=== PATIENT | female | born 1980 | race Caucasian/White ===

== ENCOUNTER 2022-01-31 15:28 | Emergency (ER) | payer MEDICAID ==
[~2022-01-31] VITALS: Ht 167.6 cm; Wt 78.1 kg
[2022-01-31 15:31] VITALS: BP 131/65
--- NOTE | 2022-01-31 15:45 | NUR ---
41 Y/O FEMALE BIB SELF DUE TO PELVIC PAIN X YESTERDAY/ TODD X7 DAYS. PT STATES SHE SUFFERS FROM MIGRAINES. PER PATIENT "SHE FEELS LIKE HER PERIOD HAS LASTED LONGER THAN USUAL." PT ALSO HAS C/O PAINFUL INTERCOURSE. PT IS EXPERINCING VAGINAL DISCHARGE XYESTERDAY. DENIES ANY DYSURIA. PT DENIES CHEST PAIN, SOB. PT DENIES FEVER OR CHILLS. VSS. LUNGS CTA. BED LOCKED IN LOWEST POSITION. BED RAILX1. PMH: MIGRANES NKA
[2022-01-31] MEDS ORDERED: METOCLOPRAMIDE 10 MG/2 ML INJ VIAL IM ONE (16:30)
[2022-01-31 16:50] LABS: APPEARANCE,URINE CLEAR (CLEAR); BILIRUBIN,URINE NEGATIVE (NEGATIVE); BLOOD, URINE NEGATIVE (NEGATIVE); COLOR,URINE YELLOW (YELLOW); LEUKOCYTE ESTERASE ,URINE NEGATIVE (NEGATIVE); NITRITE, URINE NEGATIVE (NEGATIVE); PH,URINE 5.5 (5.0-9.0); UGLUCOSE NEGATIVE (NEGATIVE)
--- NOTE | 2022-01-31 17:22 | NUR ---
AT PT BEDSIDE PERFORMING PELVIC EXAM
--- NOTE | 2022-01-31 17:26 | NUR ---
QUANG CASTILLO HANDED TO LAB AT PT BEDSIDE
--- NOTE | 2022-01-31 17:48 | NUR ---
Patient appears to be resting comfortably in bed. Vital Signs within normal limits. Respirations even and unlabored.
--- NOTE | 2022-01-31 19:30 | NUR ---
Pt report given to GENEVIEVE ASHFORD. Transfer of care at this time.
--- NOTE | 2022-01-31 20:10 | NUR ---
pt laying in bed locked in lowest position w x1 siderail up. pt reports ongoing migraine 02/14, denies ongoing pelvic pain, denies nausea or other complaints at this time. breathing even and unabored.
[2022-01-31 21:20] VITALS: BP 110/43
--- NOTE | 2022-01-31 21:20 | NUR ---
Patient discharged with v/s stable. Written and verbal after care instructions given and explained. Patient verbalized understanding. Ambulatory with steady gait. All questions addressed prior to discharge. Advised to follow up with PMD.
--- NOTE | 2022-01-31 21:25 | NUR ---
REPORT RECEIVED FROM GENEVIEVE VAZQUEZ. CONTINUITY OF PT CARE AT THIS TIME.
== END 2022-01-31 21:20 | disposition home or self-care (01) ==
LOC: MED 15:28
DX: R10.2 Pelvic and perineal pain (principal); G43.909 Migraine, unspecified, not intractable, without status migrainosus
CPT/HCPCS: 81003; 81025; 87210; 87491; 96372; 99285; J2765; Q0163; 99284

== ENCOUNTER 2023-03-14 20:36 | Emergency (ER) | payer MEDICAID ==
[~2023-03-14] VITALS: Ht 165.1 cm; Wt 81.4 kg
[2023-03-14 21:10] VITALS: BP 166/80; PULSE 92; RESP 17; TEMP 97.8; O2SAT 100
--- NOTE | 2023-03-14 21:13 | NUR ---
TO LOBBY A/W BED AMBULATORY
--- NOTE | 2023-03-14 22:00 | NUR ---
Dr examing the patient
[2023-03-14] MEDS ORDERED: KETOROLAC 60 MG/2 ML VIAL IM ONE (22:05)
[2023-03-14] MEDS ORDERED: FLONAS NS (22:44)
[2023-03-14] MEDS ORDERED: NAPR-54 PO (22:44)
[2023-03-14 22:50] VITALS: BP 166/80; PULSE 92; RESP 17; TEMP 97.8; O2SAT 100
--- NOTE | 2023-03-14 22:50 | NUR ---
Patient discharged with v/s stable. Written and verbal after care instructions given and explained. Patient alert, oriented and verbalized understanding of instructions. Ambulatory with steady gait. All questions addressed prior to discharge. ID band removed. Patient advised to follow up with PMD. Rx of FLONASE, NAPROSYN given. Patient educated on indication of medication including possible reaction and side effects. Opportunity to ask questions provided and answered.
== END 2023-03-14 22:50 | disposition home or self-care (01) ==
LOC: MED 20:36
DX: H68.002 Unspecified Eustachian salpingitis, left ear (principal); Z79.899 Other long term (current) drug therapy
CPT/HCPCS: 96372; 99283; J1885

== ENCOUNTER 2024-04-13 07:59 | Emergency (ER) | payer MEDICAID, OTHER ==
[~2024-04-13] VITALS: Ht 167.6 cm; Wt 79.1 kg
[~2024-04-13 07:59] MED LIST: FLONAS NS; NAPR-337 PO
[2024-04-13 08:07] VITALS: BP 147/71; PULSE 88; RESP 19; TEMP 97.8; O2SAT 99
[2024-04-13] MEDS: KETOROLAC 60 MG/2 ML VIAL IM ONE (08:50)
[2024-04-13] MEDS: PROCHLORPERAZINE 10 MG/2 ML VIAL IM ONE (08:55)
[2024-04-13 09:45] VITALS: BP 121/71; PULSE 68; RESP 16; TEMP 36.55848; O2SAT 99
[2024-04-13] MEDS ORDERED: TRAM-748 PO (09:55)
== END 2024-04-13 10:00 | disposition home or self-care (01) ==
LOC: MED 07:59
DX: G43.909 Migraine, unspecified, not intractable, without status migrainosus (principal); H53.149 Visual discomfort, unspecified; Z79.1 Long term (current) use of non-steroidal anti-inflammatories (NSAID); Z79.899 Other long term (current) drug therapy
CPT/HCPCS: 81025; 96372; 99284; J0780; J1885